=== PATIENT | female | born 1985 ===

== ENCOUNTER 2018-03-16 16:11 | Inpatient (IN) ==
[2018-03-16] MEDS ORDERED: ONDANSETRON 4 MG/2 ML VIAL IV PRN (17:07)
[2018-03-16] MEDS ORDERED: oxyCODONE/ACETAMINOPHEN 5-325 MG TABLET PO PRN ×2 (17:21→17:30)
[2018-03-16 18:14] LABS: Basophils % 0.2 % (0.0-0.8); Eosinophils % 0.3 % (0.00-10.9); Hematocrit 33.3 VOL% (35.7-47.0); Hemoglobin 10.8 GM/DL (12.0-16.0); Immature Granulocytes % 0.4 %; Immature Granulocytes Absolute 0.05 #; Lymphocytes # 2.4 10*3/uL (1.4-4.0); Lymphocytes % 20.1 % (21.3-54.2); Mean Corpuscular HGB Conc 32.4 GM/DL (32-36); Mean Corpuscular Hemoglobin 28 PG (27-34); Mean Corpuscular Volume 86.3 FL (87-102); Mean Platelet Volume 9.3 FL (9.6-12.0); Monocytes # 0.7 10*3/uL (0.11-0.8); Monocytes % 5.9 % (1.7-12.7); Neutrophils # 8.6 10*3/uL (1.4-7.4); Neutrophils % 73.1 % (38.7-73.9); Platelet Count 601 T/CUMM (130-400); Red Blood Count 3.86 MC/CUMM (3.8-5.5); Red Cell Distribution Width 14.2 % (9.3-17.3); White Blood Count 11.7 T/CUMM (4-12)
[2018-03-16 18:33] LABS: Calcium 8.4 MG/DL (8.5-10.1); Osmolality,Calculated 273.5 MOS/KG (273-304); Potassium 3.8 MMOL/L (3.5-5.1)
[2018-03-16] MEDS: CLINDAMYCIN INJ 600 MG in PREMIX 1 EACH IV SCH (18:45)
[2018-03-16] MEDS: oxyCODONE/ACETAMINOPHEN 5-325 MG TABLET PO PRN (18:51)
[2018-03-16] MEDS: DEXTROSE 5% LACTATED RINGERS 1,000 ML IV SCH (21:18)
[2018-03-16] MEDS: ACETAMINOPHEN 325 MG TABLET PO SCH (21:20)
[2018-03-16] MEDS: MEPERIDINE 50 MG/1 ML VIAL IV PRN (21:24)
[2018-03-16] MEDS ORDERED: GENTAMICIN INJ 100 ML IV SCH (22:00)
[2018-03-16] MEDS: GENTAMICIN INJ 120 MG in PREMIX 1 EACH IV SCH (22:32)
[2018-03-17] MEDS: CLINDAMYCIN INJ 600 MG in PREMIX 1 EACH IV SCH ×3 (02:20→17:21)
[2018-03-17] MEDS: ACETAMINOPHEN 325 MG TABLET PO SCH ×4 (04:16→21:38)
[2018-03-17] MEDS: GENTAMICIN INJ 120 MG in PREMIX 1 EACH IV SCH ×3 (05:46→21:37)
[2018-03-17] MEDS: DEXTROSE 5% LACTATED RINGERS 1,000 ML IV SCH ×3 (06:38→13:30)
[2018-03-17] MEDS: LACTATED RINGERS 1,000 ML IV SCH (09:54)
[2018-03-17] MEDS ORDERED: ceFAZolin 1,000 MG VIAL ONE (10:00)
[2018-03-17] MEDS ORDERED: PROPOFOL 200 MG/20 ML VIAL IV ONE (11:10)
[2018-03-17] MEDS ORDERED: ONDANSETRON 4 MG/2 ML VIAL ONE (11:10)
[2018-03-17] MEDS ORDERED: KETOROLAC 30 MG/1 ML VIAL ONE (11:10)
[2018-03-17] MEDS ORDERED: fentaNYL 100 MCG/2 ML VIAL ONE (11:10)
[2018-03-17] MEDS ORDERED: SEVOFLURANE 1 UNIT/15 MINUTE INH ONE (11:10)
[2018-03-17] MEDS ORDERED: ACETAMINOPHEN 1,000 MG/100 ML VIAL IV ONE (11:10)
[2018-03-18] MEDS: CLINDAMYCIN INJ 600 MG in PREMIX 1 EACH IV SCH ×3 (01:48→17:12)
[2018-03-18] MEDS: DEXTROSE 5% LACTATED RINGERS 1,000 ML IV SCH ×4 (01:48→21:03)
[2018-03-18] MEDS: ACETAMINOPHEN 325 MG TABLET PO SCH ×4 (05:34→20:58)
[2018-03-18] MEDS: GENTAMICIN INJ 120 MG in PREMIX 1 EACH IV SCH ×3 (05:50→21:03)
[2018-03-18] MEDS: LACTATED RINGERS 1,000 ML IV SCH (09:22)
[2018-03-18] MEDS: oxyCODONE/ACETAMINOPHEN 5-325 MG TABLET PO PRN (14:55)
[2018-03-18] MEDS: MEPERIDINE 50 MG/1 ML VIAL IV PRN (17:26)
[2018-03-19] MEDS: CLINDAMYCIN INJ 600 MG in PREMIX 1 EACH IV SCH ×3 (01:05→20:22)
[2018-03-19] MEDS: ACETAMINOPHEN 325 MG TABLET PO SCH ×5 (04:38→22:15)
[2018-03-19] MEDS: GENTAMICIN INJ 120 MG in PREMIX 1 EACH IV SCH ×2 (05:02→19:00)
[2018-03-19] MEDS: DEXTROSE 5% LACTATED RINGERS 1,000 ML IV SCH ×2 (09:37→22:14)
[2018-03-19] MEDS: MEPERIDINE 50 MG/1 ML VIAL IV PRN (11:23)
[2018-03-20] MEDS: GENTAMICIN INJ 120 MG in PREMIX 1 EACH IV SCH ×2 (01:06→09:29)
[2018-03-20] MEDS: ACETAMINOPHEN 325 MG TABLET PO SCH ×4 (04:42→21:32)
[2018-03-20] MEDS: DEXTROSE 5% LACTATED RINGERS 1,000 ML IV SCH ×2 (05:17→15:39)
[2018-03-20] MEDS: CLINDAMYCIN INJ 600 MG in PREMIX 1 EACH IV SCH ×2 (05:17→13:24)
[2018-03-20] MEDS ORDERED: LIDOCAINE/PRILOCAINE CREAM 5 GM TUBE TOP ONE (09:41)
[2018-03-20] MEDS ORDERED: HYDROmorphone 2 MG/1 ML VIAL IV PRN (09:42)
[2018-03-20] MEDS ORDERED: LEVOFLOXACIN INJ 750 MG in PREMIX 1 EACH IV SCH (16:00)
[2018-03-21] MEDS: DEXTROSE 5% LACTATED RINGERS 1,000 ML IV SCH ×4 (01:09→20:47)
[2018-03-21] MEDS: ACETAMINOPHEN 325 MG TABLET PO SCH ×4 (04:33→20:48)
[2018-03-21] MEDS: CIPROFLOXACIN 500 MG TABLET PO SCH ×2 (11:20→20:48)
[2018-03-21] MEDS: CLINDAMYCIN 300 MG CAPSULE PO SCH ×2 (15:23→22:03)
[2018-03-22] MEDS: DEXTROSE 5% LACTATED RINGERS 1,000 ML IV SCH ×2 (02:30→04:58)
[2018-03-22] MEDS: ACETAMINOPHEN 325 MG TABLET PO SCH ×3 (03:31→15:54)
[2018-03-22] MEDS: CLINDAMYCIN 300 MG CAPSULE PO SCH ×2 (05:00→15:54)
[2018-03-22] MEDS: CIPROFLOXACIN 500 MG TABLET PO SCH (09:20)
[2018-03-22] MEDS: oxyCODONE/ACETAMINOPHEN 5-325 MG TABLET PO PRN (11:37)
[2018-03-22 17:36] VITALS: BP 109/66
== END 2018-03-22 18:20 | disposition home or self-care (01) | DRG 951 ==
LOC: INTOOBSV 16:11 → N.3E 16:11 → EDSTATUS 03-17 11:35 → N.3EOUT 03-17 11:36
PROVIDERS: ADMIT Obstetrics & Gynecology; ATTEND Obstetrics & Gynecology

== ENCOUNTER 2019-08-14 15:11 | Inpatient (IN) ==
[2019-08-14] MEDS ORDERED: CITRIC ACID/SODIUM CITRATE 30 ML UDCUP PO ONE (15:28)
[2019-08-14] MEDS ORDERED: FAMOTIDINE 20 MG/2 ML VIAL IV ONE (15:28)
[2019-08-14] MEDS ORDERED: CLINDAMYCIN INJ 900 MG in PREMIX 1 EACH IV ONE (15:28)
[2019-08-14] MEDS: LACTATED RINGERS 1,000 ML IV SCH ×2 (15:54→17:29)
[2019-08-14] MEDS ORDERED: OXYTOCIN/LR 30 UNIT/1,000 ML BAG IV ONE (15:58)
[2019-08-14] MEDS ORDERED: OXYTOCIN 10 UNIT/ML VIAL IM ONE (15:59)
[2019-08-14 16:02] LABS: Basophils % 0.1 % (0.0-0.8); Eosinophils % 0.1 % (0.00-10.9); Hematocrit 36.2 VOL% (35.7-47.0); Hemoglobin 11.2 GM/DL (12.0-16.0); Immature Granulocytes % 0.4 %; Immature Granulocytes Absolute 0.03 #; Lymphocytes # 2.6 10*3/uL (1.4-4.0); Lymphocytes % 34.9 % (21.3-54.2); Mean Corpuscular HGB Conc 30.9 GM/DL (32-36); Mean Corpuscular Volume 77.8 FL (87-102); Mean Platelet Volume 10.4 FL (9.6-12.0); Monocytes % 6.6 % (1.7-12.7); Neutrophils % 57.9 % (38.7-73.9); Platelet Count 402 T/CUMM (130-400); Red Blood Count 4.65 MC/CUMM (3.8-5.5); Red Cell Distribution Width 15.4 % (9.3-17.3); White Blood Count 7.6 T/CUMM (4-12)
[2019-08-14 16:19] LABS: Alanine Aminotransferase 11 U/L (13-56); Albumin 2.2 G/DL (3.4-5.0); Alkaline Phosphatase 185 U/L (45-117); Aspartate Amino Transferase 7 U/L (0-37); Bilirubin,Total < 0.39 MG/DL (0.2-1.0); Blood Urea Nitrogen 7 MG/DL (7-18); Calcium 8.2 MG/DL (8.5-10.1); Glucose 98 MG/DL (74-106); Osmolality,Calculated 274.5 MOS/KG (273-304); Total Protein 6.7 G/DL (6.4-8.3)
[2019-08-14] MEDS ORDERED: MORPHINE 10 MG/10 ML VIAL ONE (17:38)
[2019-08-14] MEDS ORDERED: fentaNYL 100 MCG/2 ML VIAL ONE (17:38)
[2019-08-14] MEDS ORDERED: ONDANSETRON 4 MG/2 ML VIAL ONE (17:39)
[2019-08-14] MEDS ORDERED: BUPIVACAINE SPINAL 0.75% 2 ML AMP SPINAL ONE (17:39)
[2019-08-14] MEDS ORDERED: KETOROLAC 60 MG/2 ML VIAL IM ONE (17:39)
[2019-08-14 18:52] LABS: Cord Arterial Blood HCO3 19.6 MMOL/L
[2019-08-14] MEDS ORDERED: ACETAMINOPHEN 325 MG TABLET PO PRN (18:54)
[2019-08-14] MEDS ORDERED: MAGNESIUM HYDROXIDE SUSP 30 ML UDCUP PO PRN (18:54)
[2019-08-14] MEDS ORDERED: DEXTROSE 10% 250 ML BAG IV PRN (18:54)
[2019-08-14] MEDS ORDERED: RHO(D) IMMUNE GLOBULIN 300 MCG SYRINGE IM ONE (18:54)
[2019-08-14] MEDS ORDERED: OXYTOCIN/LR 20 UNIT/1,000 ML BAG IV ONE (18:54)
[2019-08-14] MEDS ORDERED: SIMETHICONE CHEW 80 MG TABLET PO PRN (18:54)
[2019-08-14] MEDS ORDERED: ONDANSETRON 4 MG/2 ML VIAL IV PRN ×2 (18:54→21:56)
[2019-08-14] MEDS ORDERED: GLUCAGON 1 MG VIAL IM PRN ×2 (18:54→18:57)
[2019-08-14 18:55] LABS: Cord Venous Blood PCO2 48.7 MMHG; Cord Venous Blood PO2 21.6
[2019-08-14] MEDS ORDERED: DEXTROSE 50% 25 GM/50 ML VIAL IV PRN (18:57)
[2019-08-14] MEDS ORDERED: LACTATED RINGERS 1,000 ML IV SCH (19:00)
[2019-08-14 19:45] LABS: Apearance,Urine CLEAR (Clear); Bilirubin,Urine Negative (Negative); Blood, Urine Negative (Negative); Glucose,Urine (UA) Negative (Negative); Ketones,Urine 80 mg/dL (Negative); Mucus,Urine Few /LPF (Occasional); Nitrite,Urine Negative (Negative); Protein,Urine 30 MG/DL; RBC,Urine 3 /HPF (0-4); Squamous Epithelial Cell,Urine Occasional /HPF (0-10); Urine Color Yellow (Yellow); Urine Specific Gravity 1.028 (1.001-1.035); Urine Urobilinogen < 2.0 EU/DL (0.2-1.0); WBC,Urine 3 /HPF (0-6)
[2019-08-14] MEDS ORDERED: HYDROmorphone 2 MG/1 ML VIAL IV PRN (21:38)
[2019-08-14] MEDS ORDERED: diphenhydrAMINE 50 MG/1 ML VIAL IV PRN (21:38)
[2019-08-14] MEDS ORDERED: hydrOXYzine HCL 25 MG/1 ML VIAL IM PRN (21:38)
[2019-08-15] MEDS ORDERED: INSULIN REGULAR 100 UNIT/ML SUBCUT SCH
[2019-08-15] MEDS: KETOROLAC 30 MG/1 ML VIAL IV SCH ×3 (00:47→16:53)
[2019-08-15] MEDS: CLINDAMYCIN INJ 900 MG in PREMIX 1 EACH IV SCH ×2 (04:20→11:30)
[2019-08-15] MEDS: INSULIN REGULAR 100 UNIT/ML SUBCUT SCH ×4 (04:31→23:40)
[2019-08-15 06:06] LABS: Basophils % 0.2 % (0.0-0.8); Eosinophils % 0.1 % (0.00-10.9); Hematocrit 30.2 VOL% (35.7-47.0); Hemoglobin 9.3 GM/DL (12.0-16.0); Immature Granulocytes % 0.6 %; Immature Granulocytes Absolute 0.06 #; Lymphocytes # 2.6 10*3/uL (1.4-4.0); Lymphocytes % 23.4 % (21.3-54.2); Mean Corpuscular HGB Conc 30.8 GM/DL (32-36); Mean Corpuscular Volume 79.7 FL (87-102); Mean Platelet Volume 10.6 FL (9.6-12.0); Monocytes % 8.7 % (1.7-12.7); Red Blood Count 3.79 MC/CUMM (3.8-5.5); Red Cell Distribution Width 15.5 % (9.3-17.3)
[2019-08-15 06:07] LABS: Platelet Count 289 T/CUMM (130-400); White Blood Count 10.9 T/CUMM (4-12)
[2019-08-15] MEDS: MULTIVITAMIN (PRENATAL) TABLET PO SCH (09:22)
[2019-08-15] MEDS: DOCUSATE SODIUM 100 MG CAPSULE PO SCH ×3 (09:22→20:37)
[2019-08-15] MEDS: IBUPROFEN 800 MG TABLET PO PRN ×2 (09:30→20:36)
[2019-08-16] MEDS: IBUPROFEN 800 MG TABLET PO PRN (06:09)
[2019-08-16] MEDS: INSULIN REGULAR 100 UNIT/ML SUBCUT SCH (06:10)
[2019-08-16] MEDS ORDERED: METOCLOPRAMIDE 10 MG TABLET PO SCH (08:00)
[2019-08-16] MEDS: MULTIVITAMIN (PRENATAL) TABLET PO SCH (09:11)
[2019-08-16] MEDS: DOCUSATE SODIUM 100 MG CAPSULE PO SCH (09:11)
[2019-08-16] MEDS ORDERED: MAGNESIUM CITRATE 300 ML BOTTLE PO ONE (09:32)
[2019-08-16 11:28] VITALS: BP 139/89
[2019-08-16] MEDS ORDERED: DIPH/TET/ACEL PERT BOOSTER VACCINE 0.5 ML VIAL IM ONE (13:41)
[2019-08-16] MEDS ORDERED: INFLUENZA VIRUS VACCINE 0.5 ML SYRINGE IM ONE (13:41)
[2019-08-16] MEDS ORDERED: SERTRALINE 50 MG TABLET PO SCH (21:00)
== END 2019-08-16 15:00 | disposition home or self-care (01) | DRG 540 ==
LOC: N.LDOUT 15:11 → N.LD 15:13 → N.OB 21:37
PROVIDERS: ADMIT Obstetrics & Gynecology; ATTEND Obstetrics & Gynecology
PROC: LDCSECT (ICD-10-PCS; 2019-08-14 18:00)

== ENCOUNTER 2021-09-26 05:41 | Inpatient (IN) ==
[2021-09-26] MEDS ORDERED: ONDANSETRON 4 MG/2 ML VIAL IV PRN ×2 (05:48→11:53)
[2021-09-26] MEDS ORDERED: LACTATED RINGERS 500 ML IV PRN (05:48)
[2021-09-26] MEDS ORDERED: FAMOTIDINE 20 MG/2 ML VIAL IV SCH (06:00)
[2021-09-26] MEDS ORDERED: CLINDAMYCIN INJ 900 MG/50 ML PREMIX IV ONE (06:06)
[2021-09-26] MEDS ORDERED: OXYTOCIN/LR 30 UNIT/1,000 ML BAG IV ONE (06:08)
[2021-09-26] MEDS: LACTATED RINGERS 1,000 ML IV SCH ×2 (06:17→10:17)
[2021-09-26 06:35] LABS: Basophils % 0.1 % (0.0-0.8); Eosinophils % 0.4 % (0.00-10.9); Hematocrit 36.5 VOL% (35.7-47.0); Hemoglobin 11.1 GM/DL (12.0-16.0); Immature Granulocytes % 0.4 %; Immature Granulocytes Absolute 0.04 #; Lymphocytes # 2.8 10*3/uL (1.4-4.0); Lymphocytes % 31.3 % (21.3-54.2); Mean Corpuscular HGB Conc 30.4 GM/DL (32-36); Mean Corpuscular Volume 72.9 FL (87-102); Mean Platelet Volume 9.8 FL (9.6-12.0); Monocytes % 6.4 % (1.7-12.7); Neutrophils % 61.4 % (38.7-73.9); Platelet Count 365 T/CUMM (130-400); Red Blood Count 5.01 MC/CUMM (3.8-5.5); Red Cell Distribution Width 17.1 % (9.3-17.3); White Blood Count 8.9 T/CUMM (4-12)
[2021-09-26 06:51] LABS: Alanine Aminotransferase < 9 U/L (13-56); Albumin 2.1 G/DL (3.4-5.0); Alkaline Phosphatase 170 U/L (45-117); Aspartate Amino Transferase 6 U/L (0-37); Bilirubin,Total < 0.39 MG/DL (0.20-1.00); Blood Urea Nitrogen 6 MG/DL (7-18); Calcium 8.3 MG/DL (8.5-10.1); Carbon Dioxide 21 MMOL/L (21-32); Estimated Glom Filtration Rate 175 ML/MIN; Glucose 149 MG/DL (74-106); Potassium 3.6 MMOL/L (3.5-5.1); Sodium 136 MMOL/L (136-145); Total Protein 6.7 G/DL (6.4-8.2); Uric Acid 2.7 MG/DL (2.6-6.0)
[2021-09-26] MEDS ORDERED: CITRIC ACID/SODIUM CITRATE 30 ML UDCUP PO ONE (08:15)
[2021-09-26] MEDS ORDERED: FAMOTIDINE 20 MG/2 ML VIAL IV ONE (08:15)
[2021-09-26] MEDS ORDERED: OXYTOCIN 10 UNIT/ML VIAL IM ONE (08:15)
[2021-09-26] MEDS ORDERED: miSOPROStoL 200 MCG TABLET ONE (10:20)
[2021-09-26] MEDS ORDERED: CARBOPROST TROMETHAMINE 250 MCG/ML AMP IM ONE (10:21)
[2021-09-26] MEDS ORDERED: METHYLERGONOVINE 0.2 MG/1 ML AMP ONE (10:21)
[2021-09-26] MEDS ORDERED: BUPIVACAINE SPINAL 0.75% 2 ML AMP SPINAL ONE (10:36)
[2021-09-26] MEDS ORDERED: ONDANSETRON 4 MG/2 ML VIAL ONE (10:36)
[2021-09-26] MEDS ORDERED: KETOROLAC 30 MG/1 ML VIAL ONE (10:36)
[2021-09-26] MEDS ORDERED: PHENYLEPHRINE 1 MG/10 ML SYRINGE IV ONE (10:53)
[2021-09-26 11:26] LABS: Bacteria,Urine Occasional /HPF (Few); Bilirubin,Urine Negative (Negative); Blood, Urine Negative (Negative); Glucose,Urine (UA) 50 mg/dL (Negative); Ketones,Urine 80 mg/dL (Negative); Mucus,Urine Occasional /LPF (Occasional); Nitrite,Urine Negative (Negative); Protein,Urine 30 MG/DL; RBC,Urine 2 /HPF (0-4); Squamous Epithelial Cell,Urine Occasional /HPF (0-10); Urine Appearance CLEAR (Clear); Urine Color Yellow (Yellow); Urine Specific Gravity 1.023 (1.001-1.035)
[2021-09-26 11:35] LABS: Cord Venous Blood HCO3 21.7 MMOL/L; Cord Venous Blood PCO2 52.8 MMHG
[2021-09-26 11:36] LABS: Cord Arterial Blood HCO3 20.4 MMOL/L
[2021-09-26] MEDS ORDERED: ACETAMINOPHEN 325 MG TABLET PO PRN (11:53)
[2021-09-26] MEDS ORDERED: RHO(D) IMMUNE GLOBULIN 300 MCG SYRINGE IM ONE (11:53)
[2021-09-26] MEDS ORDERED: DEXTROSE 50% 25 GM/50 ML VIAL IV PRN (11:53)
[2021-09-26] MEDS ORDERED: GLUCAGON 1 MG VIAL IM PRN (11:53)
[2021-09-26] MEDS ORDERED: OXYTOCIN/LR 20 UNIT/1,000 ML BAG IV ONE (11:53)
[2021-09-26] MEDS ORDERED: hydrOXYzine HCL 25 MG/1 ML VIAL IM PRN (11:56)
[2021-09-26] MEDS ORDERED: diphenhydrAMINE 50 MG/1 ML VIAL IV PRN (11:56)
[2021-09-26] MEDS ORDERED: HYDROmorphone 2 MG/1 ML VIAL IV PRN (11:56)
[2021-09-26] MEDS ORDERED: LACTATED RINGERS 1,000 ML IV SCH (12:00)
[2021-09-26] MEDS: ACETAMINOPHEN 500 MG TABLET PO SCH ×2 (13:39→18:12)
[2021-09-26] MEDS: ONDANSETRON 4 MG/2 ML VIAL IV PRN (15:45)
[2021-09-26 16:27] LABS: Hematocrit 33.6 VOL% (35.7-47.0)
[2021-09-26] MEDS: CLINDAMYCIN INJ 900 MG/50 ML PREMIX IV SCH (18:11)
[2021-09-26] MEDS: KETOROLAC 30 MG/1 ML VIAL IV SCH (18:11)
[2021-09-26] MEDS: DOCUSATE SODIUM 100 MG CAPSULE PO SCH (22:00)
[2021-09-27] MEDS: CLINDAMYCIN INJ 900 MG/50 ML PREMIX IV SCH (02:25)
[2021-09-27] MEDS: KETOROLAC 30 MG/1 ML VIAL IV SCH ×2 (05:45)
[2021-09-27] MEDS: ACETAMINOPHEN 500 MG TABLET PO SCH ×2 (05:47)
[2021-09-27 06:34] LABS: Basophils % 0.3 % (0.0-0.8); Eosinophils % 0.5 % (0.00-10.9); Hematocrit 32.3 VOL% (35.7-47.0); Hemoglobin 9.8 GM/DL (12.0-16.0); Immature Granulocytes % 0.3 %; Immature Granulocytes Absolute 0.02 #; Lymphocytes # 2.6 10*3/uL (1.4-4.0); Lymphocytes % 33.1 % (21.3-54.2); Mean Corpuscular HGB Conc 30.3 GM/DL (32-36); Mean Corpuscular Volume 73.6 FL (87-102); Mean Platelet Volume 9.6 FL (9.6-12.0); Monocytes % 8.2 % (1.7-12.7); Neutrophils % 57.6 % (38.7-73.9); Platelet Count 316 T/CUMM (130-400); Red Blood Count 4.39 MC/CUMM (3.8-5.5); Red Cell Distribution Width 17.1 % (9.3-17.3); White Blood Count 7.8 T/CUMM (4-12)
[2021-09-27] MEDS: METOCLOPRAMIDE 10 MG TABLET PO SCH ×3 (08:58→23:51)
[2021-09-27] MEDS: SIMETHICONE CHEW 80 MG TABLET PO PRN (08:59)
[2021-09-27] MEDS: MULTIVITAMIN (PRENATAL) TABLET PO SCH (08:59)
[2021-09-27] MEDS: DOCUSATE SODIUM 100 MG CAPSULE PO SCH ×2 (08:59→21:22)
[2021-09-27] MEDS: MAGNESIUM HYDROXIDE SUSP 30 ML UDCUP PO PRN (08:59)
[2021-09-27] MEDS: IBUPROFEN 800 MG TABLET PO PRN ×2 (10:19→21:23)
[2021-09-27] MEDS: ONDANSETRON 4 MG/2 ML VIAL IV PRN ×2 (16:05→21:13)
[2021-09-27] MEDS: INSULIN REGULAR 100 UNIT/ML SUBCUT SCH ×2 (18:42→18:43)
[2021-09-27] MEDS ORDERED: ONDANSETRON 4 MG TABLET PO PRN (21:03)
[2021-09-27] MEDS ORDERED: BISACODYL 10 MG SUPP RECTAL PRN (21:03)
[2021-09-28] MEDS: SIMETHICONE CHEW 80 MG TABLET PO PRN ×2 (04:05→08:27)
[2021-09-28] MEDS: MAGNESIUM HYDROXIDE SUSP 30 ML UDCUP PO PRN ×2 (08:27→20:13)
[2021-09-28] MEDS: DOCUSATE SODIUM 100 MG CAPSULE PO SCH ×2 (08:27→20:13)
[2021-09-28] MEDS: METOCLOPRAMIDE 10 MG TABLET PO SCH ×3 (08:27→23:46)
[2021-09-28] MEDS: MULTIVITAMIN (PRENATAL) TABLET PO SCH (08:27)
[2021-09-28] MEDS: IBUPROFEN 800 MG TABLET PO PRN ×2 (08:27→16:19)
[2021-09-28] MEDS: INSULIN REGULAR 100 UNIT/ML SUBCUT SCH ×2 (08:30→17:09)
[2021-09-29] MEDS: IBUPROFEN 800 MG TABLET PO PRN (04:59)
[2021-09-29] MEDS: INSULIN REGULAR 100 UNIT/ML SUBCUT SCH (07:28)
[2021-09-29 07:32] VITALS: BP 121/70
[2021-09-29] MEDS ORDERED: SERTRALINE 50 MG TABLET PO ONE (08:08)
[2021-09-29] MEDS ORDERED: INFLUENZA VIRUS VACCINE 0.5 ML SYRINGE IM ONE (08:08)
[2021-09-29] MEDS ORDERED: DIPH/TET/ACEL PERT BOOSTER VACCINE 0.5 ML VIAL IM ONE (08:08)
[2021-09-29] MEDS: MULTIVITAMIN (PRENATAL) TABLET PO SCH (08:26)
[2021-09-29] MEDS: DOCUSATE SODIUM 100 MG CAPSULE PO SCH (08:27)
== END 2021-09-29 17:15 | disposition home or self-care (01) | DRG 540 ==
LOC: N.LD 05:41 → N.OB 15:35
PROVIDERS: ADMIT Obstetrics & Gynecology; ATTEND Obstetrics & Gynecology
PROC: LDCSECT (ICD-10-PCS; 2021-09-26 11:00)